=== PATIENT | male | born 1990 | race Caucasian/White ===

== ENCOUNTER 2020-01-11 06:46 | Outpatient (RCR) | payer BC, SELFPAY ==
--- NOTE | 2020-01-11 07:58 | PTOPEVAL ---
PHYSICAL THERAPY EVALUATION AND PLAN OF CARE 01-11-2020 The PT evaluation was completed for the diagnosis of dorsalgia. His plan of treatment is scheduled for 1x/week for 5 weeks. Thank you for referring Aditya to [facility]. Please review, sign, date and return this plan of care QUINTIN. I agree with and certify that the following plan of care is medically necessary. Referring Physician Date Attending Provider: Manny Pérez PA-C *PT Outpatient Evaluation Start: 01/11/20 07:07 Document 01/11/20 07:00 TISH (Rec: 01/11/20 07:58 TISH [id number]) Outpatient Past Medical History Neurological History Hx Neurological Disorders No Significant History Cardiovascular History Hx Cardiac Disorders No Significant History Respiratory History Hx Respiratory Disorders No Significant History Gastrointestinal History Hx Gastrointestinal Disorders No Significant History Musculoskeletal History Hx Back Pain Yes Endocrine History Hx Endocrine Disorders No Significant History Other History Hx Other Surgeries Yes: appendix Evaluation Information Problem Diagnosis dorsalgia Onset Sep 2019 Subjective Information gradual increase in back pain; Query Text:As Reported By Patient/ chronic, onset about 4 yr Family ago, with physical work in [employer]; recently started fostering children--picking them up and more activity Diagnostic Tests MRI For This Problem Yes: 2015-not know results Previous Treatments Previous Treatments For This Problem no PT for back Prior Level of Function Activity Level (Last 3 Months) Occupation desk job; Hand Dominance Right Activity of Daily Living Ability Independent Indoor/Home Mobility Independent Community Mobility Independent Stairs Ability Independent Functional Cognition (Planning, Shopping Independent , Taking Medications) Cooking Yes Cleaning Yes Laundry Yes Shopping Yes Driving Yes Medications Home Meds (Include: OTC, RX, Vitamins, no prescription meds; over Herbals, Dose, Route,and Frequency) the counter meds for back PRN- Query Text:Home Med Entries Will No not taken any lately Longer Recall From Past Visits. Home Meds Must Be Re-entered With Each Visit. Home Setting Home Type House Living Situation With Spouse Mobility Assistive Devices (Used Last 3 None Months) Comments Additional Prior Level of Function able to perform all home and Comments self care tasks; do not
--- NOTE | 2020-01-25 07:53 | PCPTNOTE ---
Patient did not show up for scheduled appointment this date.
--- NOTE | 2020-02-03 15:57 | PCPTNOTE ---
PHYSICAL THERAPY DISCHARGE 02-03-2020 Attending Provider: ROSALINDA JustinC Patient:Aditya Shaffer Date of :1990 Aditya received the PT evaluation on 01/11/2020, for the diagnosis of low back pain. He did not show for one appointment, then called and canceled therapy due to the coronavirus. Therefore he will be discharged at this time. The goals were not assessed. Thank you for referring Mr. Shaffer to [facility]. Please review, sign, date and return this discharge summary QUINTIN. I have been updated about the patient's current status and I agree with discharge from the above service at this time. Referring Physician Date
== END 2020-02-06 14:25 | disposition home or self-care (01) ==
LOC: ANHPT 06:46
PROVIDERS: PCP Physician Assistant; Visit Provider Physician Assistant
DX: M54.9 Dorsalgia, unspecified (principal)
CPT/HCPCS: 97110; 97161

== ENCOUNTER → 2022-02-10 07:42 | Outpatient (CLI) | payer BC, SELFPAY ==
--- NOTE | ~2022-02-10 | US_ITS ---
EXAMINATION: US abdomen complete EXAM DATE: 02/10/2022 08:26 INDICATION: Abdominal pain . TECHNIQUE: Multiple grayscale and Doppler images of the complete abdomen were obtained (by a technolo gist who performed the scan) and subsequently reviewed. There is no prior study for comparison. FINDINGS: The abdominal aorta is normal in caliber. Visualized portion IVC is patent. The pancreatic head a nd body are normal in appearance. The pancreatic tail is not visualized. There is echogenic liver parenchyma, hepatic steatosis. There are no focal liver lesions identified. There is no evidence of intrahepatic biliary duct dilation. Portal venous flow was seen in the he patopedal, normal direction and has normal Doppler waveform. Common bile duct measures 3 mm, which is normal. The gallbladder wall is normal in thickness, with ex pected amount of distention. No sonographic evidence of pericholecystic fluid. There is a 6 mm echo genic structure, appears to be independent aspect but also reportedly nonmobile. Most likely small ga llbladder polyp, which for its size does not require any further follow-up. Technologist performing exam reports patient did not demonstrate sonographic Wright's sign. Please note that this sign is le ss reliable in patients who have received pain medication. Right kidney: There is normal contour and echogenicity. It measures 10.6 x 5.8 x 5.7 centimeters. There are no focal renal lesions identified. There is no hydronephrosis. Left kidney: There is normal contour and echogenicity. It measures 11.2 x 6.2 x 5.4 centimeters. T here are no focal renal lesions identified. There is no hydronephrosis. The spleen measures 9 centimeters and is morphologically normal. IMPRESSION: 1. Hepatic steatosis. 2. Small gallbladder polyp not likely clinically significant. Reviewed, dictated and finalized at location B.
== END ==
PROVIDERS: PCP Emergency Medicine; Visit Provider Emergency Medicine
DX: K76.0 Fatty (change of) liver, not elsewhere classified (principal); K82.4 Cholesterolosis of gallbladder
CPT/HCPCS: 76700